=== PATIENT | female | born 1950 | race Caucasian/White ===

== ENCOUNTER 2024-11-17 12:51 | Emergency (ER) | payer OTHER, SELFPAY ==
--- NOTE | ~2024-11-17 | CT_ITS ---
CLINICAL HISTORY: fall, pain CT cervical spine without contrast Comparison: None Findings: Normal vertebral body alignment. There are mild degenerative changes. There is no significant central canal narrowing. 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 No acute fractures or dislocations. Visualized intracranial contents are unremarkable. Soft tissues of the neck are normal. No consolidation or effusion at the lung apices. IMPRESSION: No acute findings. This document has been electronically signed by: Katherine Cisneros MD on 11/17/2024 14:27:26
--- NOTE | ~2024-11-17 | CT_ITS ---
CLINICAL HISTORY: fall, pain CT maxillofacial without contrast Comparison: None Findings: Mildly displaced nasal bone fracture. Possible nondisplaced fracture of the nasal septum. Temporomandibular joints are intact. Paranasal sinuses and mastoid air cells clear. Orbits normal. Visualized intracranial contents are within normal limits. No foreign bodies. There is edema of the soft tissues of the right side of the forehead and the nose. There are tiny pockets of gas within the soft tissues of the base of the nose. IMPRESSION: Mildly displaced nasal bone fracture. Possible nondisplaced fracture of the nasal septum. This document has been electronically signed by: Katherine Cisneros MD on 11/17/2024 14:26:05
--- NOTE | ~2024-11-17 | CT_ITS ---
CLINICAL HISTORY: fall, pain CT head without contrast Comparison: None Findings: No intra-axial mass, midline shift, hydrocephalus, or acute hemorrhage. No significant atrophy-like change or white matter disease. The visualized paranasal sinuses and mastoid air cells are normal. The orbits are within normal limits. There is a fracture of the nasal bone. There are tiny pockets of gas within the soft tissues of the base of the nasal bone. There is a possible nondisplaced fracture of the nasal septum. There is a right frontal scalp contusion. IMPRESSION: 1. No intracranial hemorrhage. 2. There is a fracture of the nasal bone. There is a possible nondisplaced fracture of the nasal septum. This document has been electronically signed by: Katherine Cisneros MD on 11/17/2024 14:24:03
--- NOTE | 2024-11-17 12:57 | ED_ITS ---
HPI - Fall General Chief Complaint: Fall Stated Complaint: nose inj s/p fall Time Seen by Provider: 11/17/24 13:57 Source: patient Mode of arrival: ambulatory Limitations: no limitations History of Present Illness ED Provider: Dr. Shane Easton HPI Narrative: 74-year-old female with a history of hyperlipidemia, diabetes who presents emergency department for evaluation of injuries from a fall. The patient states that she tripped,fell forward landing on her face . She states she was able to get up immediately. She denied any loss of consciousness. The injury occurred approximately 1 hour prior to coming to the emergency department. She states that she sustained a cut to her nose and was bleeding . Related Data Previous Rx's ?Medication ?Instructions ?Recorded cephalexin 500 mg capsule 500 mg PO QID 7 days #28 caps 11/17/24 Allergies Allergy/AdvReac Type Severity Reaction Status Date / Time diphenhydramine Allergy Rash Verified 11/17/24 13:02 [From Nick] Review of Systems Review of Systems: Yes all other systems are reviewed and are negative [facility] Social History Social History Advance Directives: No Advance Directives Information Provided: No Physical Exam Vital Signs: Vital Signs: Last Vital Signs Temp 98.0 F 11/17/24 16:01 Pulse 77 11/17/24 16:01 Resp 16 11/17/24 16:01 BP 177/70 H 11/17/24 16:01 Pulse Ox 98 11/17/24 16:01 O2 Del Method Room Air 11/17/24 16:01 BMI result Body Mass Index 32.2 vital signs revealed an elevated blood pressure otherwise unremarkable Exam: General: Awake, alert in no distress Head: Normocephalic, 2 x 2 cm hematoma to the right forehead which is ecchymotic and tender, no other acute scalp abnormalities noted. Patient does have a 1 cm laceration you the bridge of the nose. There are several other superficial lacerations to the bridge of the nose as well. Patient does have tenderness palpation over in nasal bridge. There is dry blood in the right nares any nasal septum no hematoma noted on inspection EENT: PERRL, Lids normal, sclera normal, conjunctiva normal , ears normal, throat without erythema or exudates Neck: Supple, no adenopathy Lung: breath sounds symmetric, no wheezing, rales or rhonchi Chest: symmetric movement, nontender Heart: regular rate and rhythm, normal S1, S2 no murmurs or rubs Abdomen: soft, non-tender, nondistended, normal bowel sounds Back: no vertebral tenderness, no CVAT Extremities: no deformities, moves all extremities symmetrically Neuro: Awake, alert, oriented, normal speech, cranial nerves intact, moves all extremities symmetrically Psych: Pleasant, cooperative Course Course Course Narrative: 11/17 1258 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 No LOC. Will obtain CT head/facial bones/cervical spine. Will need lac repair. VSS Medications Administered Discontinued Medications Generic Name Dose Route Start Last Admin Trade Name Freq PRN Reason Stop Dose Admin Acetaminophen 975 mg 11/17/24 15:25 11/17/24 16:04 Acetaminophen 325 Mg Tablet PO 11/17/24 15:26 Not Given ONCE STA Bacitracin 1 appl 11/17/24 15:25 11/17/24 16:04 Bacitracin Oint 0.9 Gm Packet TOPICAL 11/17/24 15:26 Not Given ONCE ONE Protocol Cephalexin HCl 500 mg 11/17/24 15:25 11/17/24 16:04 Cephalexin 500 Mg Capsule PO 11/17/24 15:26 Not Given ONCE ONE Lidocaine HCl 5 ml 11/17/24 14:25 11/17/24 15:23 Lidocaine Hcl 1 % Mpf 5 Ml Vial INFILTRATI 11/17/24 14:26 5 ml ONCE STA Administration Procedures Laceration nasal bridge laceration: Site: face ( nasal bridge) Size (cm): 1.0 Description: linear Depth: [id number] Local Anesthetic: lidocaine 1% Amount of anesthesia used (mL): 5 Pre-repair: wound explored Skin layer closed with: vicryl Size (cm): 5-0 Number of sutures: 5 Technique: simple, interrupted Medical Decision Making Medical Decision Making MDM Narrative: 74-year-old female with a history of hyperlipidemia, diabetes who presents emergency department for evaluation of injuries from a fall. The patient states that she tripped,fell forward landing on her face . She states she was able to get up immediately. She denied any loss of consciousness. The injury occurred approximately 1 hour prior to coming to the emergency department. She states that she sustained a cut to her nose and was bleeding . physical examination did reveal an elevated blood pressure. Patient did have a suturable laceration to the bridge your nose with tenderness palpation of this area. She also has a right forehead hematoma. Exam is otherwise unremarkable. Differential diagnosis: Includes but is not limited to Skull fracture, in tracranial bleed, cervical fracture, nasal bone fractures, facial fractures, closed head injury, concussion Course: the patient had a CT scan of the head/cervical spine / facial bones. CT scan of the head and cervical spine were unremarkable. CT facial bones did reveal mildly displaced nasal bone fracture and possible nondisplaced fracture of the nasal septum. I did discuss these findings with the patient. given the fact that the patient has a laceration over the nasal bridge possible she may have an open fracture therefore she was treated prophylactically with Keflex 500 mg 4 times a day for 7 days. She was given her 1st dose here in the emergency department. The patient's nasal bridge laceration was repaired by me. The wound was closed in a single layer using 5.0 Vicryl dissolve will sutures. Total of 5 sutures were used. the wound was covered with bacitracin and a gauze dressing. Patient also received acetaminophen 975 mg orally for her pain. The patient was given printed and verbal instructions and discharged home. Admission/Observation Consideration of admission/observation: Escalation of care including admission/observation considered ( Yes) Radiology Impression Discussion of test interpretation with radiology: I have reviewed the radiologist's reading. Radiologist Impression: CT head without contrast Comparison: None Findings: No intra-axial mass, midline shift, hydrocephalus, or acute hemorrhage. No significant atrophy-like change or white matter disease. The visualized paranasal sinuses and mastoid air cells are normal. The orbits are within normal limits. There is a fracture of the nasal bone. There are tiny pockets of gas within the soft tissues of the base of the nasal bone. There is a possible nondisplaced fracture of the nasal septum. There is a right frontal scalp contusion. IMPRESSION: 1. No intracranial hemorrhage. 2. There is a fracture of the nasal bone. There is a possible nondisplaced fracture of the nasal septum. This document has been electronically signed by: Katherine Cisneros MD on 11/17/2024 14:24:03 CT cervical spine without contrast Comparison: None Findings: Normal vertebral body alignment. There are mild degenerative changes. There is no significant central canal narrowing. 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 No acute fractures or dislocations. Visualized intracranial contents are unremarkable. Soft tissues of the neck are normal. No consolidation or effusion at the lung apices. IMPRESSION: No acute findings. This document has been electronically signed by: Katherine Cisneros MD on 11/17/2024 14:27:26 CT maxillofacial without contrast Comparison: None Findings: Mildly displaced nasal bone fracture. Possible nondisplaced fracture of the nasal septum. Temporomandibular joints are intact. Paranasal sinuses and mastoid air cells clear. Orbits normal. Visualized intracranial contents are within normal limits. No foreign bodies. There is edema of the soft tissues of the right side of the forehead and the nose. There are tiny pockets of gas within the soft tissues of the base of the nose. IMPRESSION: Mildly displaced nasal bone fracture. Possible nondisplaced fracture of the nasal septum. This document has been electronically signed by: Katherine Cisneros MD on 11/17/2024 14:26:05 Independent Historian Clinical information obtained from an independent historian. History obtained from or confirmed by: Friend Prescription Management I considered prescription management with: Antibiotic ( Keflex) Chronic Conditions Patient?s care impacted by: Diabetes and Other ( hyperlipidemia ) Discharge Plan Discharge Clinical Impression: Fall, Laceration of nose, Closed fracture nasal bone, Closed fracture of nasal septum Patient Disposition: Home, Self-Care Instructions: Nasal Fracture (ED), Head Injury (DC) Additional Instructions: Your CT scan of your head and neck revealed no broken bones. The CT scan of the face revealed mildly displaced broken bone of your nose and nasal septum. These most likely will not need any intervention by an ENT physician but you can call our ENT physician at [facility] for follow-up if you have any concerns. You have 5 stitches in the laceration/cut over your nose. The stitches should dissolve in 5-14 days. Apply triple antibiotic ointment to the cut twice a day until the stitches dissolved. If the stitches do not dissolve after 2 weeks then your nurse practitioner, an urgent care clinic or the emergency department can remove the stitches. Since the cut on your nose was deep I do not want this to get infected especially since you have a broken bone of your nose therefore I am starting you on an antibiotic to prevent an infection. Take Keflex 500 mg pills, 1 pill 4 times a day for 5 days Take Tylenol (acetaminophen) 500 mg pills, 2 pills every 6 hours as needed for pain or fever. Follow-up with your doctor in 2 days. Please return to the emergency department if your symptoms get worse or if you develop any symptoms that are concerning to you. CT maxillofacial without contrast Comparison: None Findings: Mildly displaced nasal bone fracture. Possible nondisplaced fracture of the nasal septum. Temporomandibular joints are intact. Paranasal sinuses and mastoid air cells clear. Orbits normal. Visualized intracranial contents are within normal limits. No foreign bodies. There is edema of the soft tissues of the right side of the forehead and the nose. There are tiny pockets of gas within the soft tissues of the base of the nose. IMPRESSION: Mildly displaced nasal bone fracture. Possible nondisplaced fracture of the nasal septum. This document has been electronically signed by: Katherine Cisneros MD on 11/17/2024 14:26:05 Prescriptions: New cephalexin 500 mg capsule 500 mg PO QID 7 Days Qty: 28 0RF Referrals: Griffin Lira [Physician] - 2 weeks (Nondisplaced nasal bone fracture and possible nasal septum fracture) Interventions: ED Discharge Assessment Last Done: 11/17/24 16:01 Discharge Date/Time: 11/17/24 16:02 Print Language: Portuguese
[2024-11-17 12:59] VITALS: BP 165/70; PULSE 80; RESP 18; TEMP 37.1; O2SAT 98; BMI 32.2
--- OUTSIDE RECORDS SUMMARY | 2024-11-17 14:08 | XMS_ITS | Clinical Summary ---
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 Name Role Phone Unavailable Primary Care Provider Unavailabl e Social History Tobacco Use Types Packs/Day Years Used Date Smoking Tobacco: Never Assessed Comments Unknown Sex and Gender Information Value Date Recorded Sex Assigned at Not on file Legal Sex Female 8:14 AM EST Gender Identity Not on file Sexual Orientation Not on file Plan of Treatment Upcoming Encounters Date Type Department Care Team (Late st Contact Info) Description 12/20/2024 7:15 AM EDT [facility]ointment [facility] [address] [address] Health Maintenance Due Date Last Done Comments Diabetes: Annual Foot Exam 1962 Diabetes: Annual Retina Eye Exam 1962 DTaP,Tdap,and Td Vaccines (1 - Tdap) 1971 Zoster Vaccines (1 of 2) 2002 Pneumococcal Vaccine: 50+ Years (2 of 2 - PPSV23) 05/28/2020 04/02/2020 Colorectal Cancer Screening: Colonoscopy 06/06/2022 Depression Screening 06/06/2022 Falls Risk Assessment 06/06/2022 Hepatitis C Screening 06/06/2022 Medicare Annual Wellness Visit 06/06/2022 Osteoporosis Screening (Bone Density Screening) 06/06/2022 Social Influencers of Health Screening 06/06/2022 COVID-19 Vaccine ( season) 2024 Influenza Vaccine (Season Ended) 2025 Diabetes: Blood Sugar Control Test (HGBA1C) 04/12/2025 10/11/2024 Diabetes: Annual Urine Albumin-Creatinine Ratio (uACR) 10/11/2025 10/11/2024 Diabetes: Annual GFR (Glomerular Filtration Rate) 10/11/2025 10/11/2024 Breast Cancer Screening 10/12/2025 10/13/19 24, 09/03/2022, 08/13/2021, Additional history exists RSV Immunization Adult Patients (1 - 1-dose 75+ series) 2027 Cholesterol Screening (Lipid Panel) 10/11/2029 10/11/2024 HIB Vaccines Aged Out No longer eligi ble based on patient's age to complete this topic HPV Vaccines Aged Out No longer eligi ble based on patient's age to complete this topic Hepatitis A Vaccines Aged Out No long er eligible based on patient's age to complete this topic Hepatitis B Vaccines Aged Out No long er eligible based on patient's age to complete this topic IPV Vaccines Aged Out No longer eligi ble based on patient's age to complete this topic MMR Vaccines Aged Out No longer eligi ble based on patient's age to complete this topic Meningococcal ACWY Vaccine Aged Out N o longer eligible based on patient's age to complete this topic Meningococcal B Vaccine Aged Out No l onger eligible based on patient's age to complete this topic RSV Immunization Patients Under 20 months Aged Out No longer eligible based on patient's age to complete this topic Varicella Vaccines Aged Out No longer eligible based on patient's age to complete this topic Procedures Procedure Name Priority Date/Time Associated Diagnosis Comments MICROALBUMIN CREATININE URINE RATIO Routine 10/11/2024 3:15 PM EDT Diabetes mellitus ([facility] V24, [facility] V28) Vitamin D deficiency disease Obesity, unspecified Hyperlipemia Major depressive disorder, single episode, unspecified ALANINE AMINOTRANSFERASE Routine 025 8:29 AM EDT Diabetes mellitus ([facility] V24, [facility] V28) Vitamin D deficiency disease Obesity, unspecified Hyperlipemia Major depressive disorder, single episode, unspecified VITAMIN D 25 HYDROXY Routine 10/11/2024 8:29 AM EDT Diabetes mellitus ([facility] V24, [facility] V28) Vitamin D deficiency disease Obesity, unspecified Hyperlipemia Major depressive disorder, single episode, unspecified THYROID STIMULATING HORMONE WITH REFLEX TO FREE T4 AND FREE T3 Routine 10/11/2024 8:29 AM EDT Diabetes mellitus ([facility] V24, [facility] V28) Vitamin D deficiency disease Obesity, unspecified Hyperlipemia Major depressive disorder, single episode, unspecified COMPLETE BLOOD COUNT Routine 10/11/2024 8:29 AM EDT Diabetes mellitus ([facility] V24, [facility] V28) Vitamin D deficiency disease Obesity, unspecified Hyperlipemia Major depressive disorder, single episode, unspecified HEMOGLOBIN A1C Routine 10/11/2024 8:29 AM EDT Diabetes mellitus ([facility] V24, [facility] V28) Vitamin D deficiency disease Obesity, unspecified Hyperlipemia Major depressive disorder, single episode, unspecified BASIC METABOLIC PANEL Routine 10/11/2024 8:29 AM EDT Diabetes mellitus ([facility] V24, [facility] V28) Vitamin D deficiency disease Obesity, unspecified Hyperlipemia Major depressive disorder, single episode, unspecified ASPARTATE AMINOTRANSFERASE Routine 10/11/2024 8:29 AM EDT Diabetes mellitus ([facility] V24, [facility] V28) Vitamin D deficiency disease Obesity, unspecified Hyperlipemia Major depressive disorder, single episode, unspecified LIPID PANEL WITH REFLEX TO DIRECT LDL Routine 10/11/2024 8:29 AM EDT Diabetes mellitus ([facility] V24, [facility] V28) Vitamin D deficiency disease Obesity, unspecified Hyperlipemia Major depressive disorder, single episode, unspecified ALISSA SCREENING DIGITAL Routine 10/13/2023 10:04 AM EDT Encounter for screening mammogram for malignant neoplasm of breast from Last 3 Months or Most Recently Relevant to Health Maintenance Results * Microalbumin creatinine urine ratio (10/11/2024 3:15 PM EDT) [facility] Creatinine, Urine 141.0 mg/dL LAB CHEMISTRY METHOD 10/11/2024 4:37 PM EDT [facility] Microalb, Ur 11.5 0.0 - 29.0 mg/L LAB CHEMISTRY METHOD 10/11/2024 4:37 PM EDT [facility] Microalb/Creat Ratio 8 <30 mg/g creat LAB CHEMISTRY METHOD 10/11/2024 4:37 PM EDT [facility] Urine Urine specimen obtained by clean catch procedure / Unknown Non-blood Collection / Unknown 10/11/2024 3:15 PM EDT 10/11/2024 3:39 PM EDT My Mendez LAB URINE ORDERABLES Final Re sult Performing Organization Address [facility]/ZIP Co de Phone Number [facility] [address] [place] [address], [place] [phone] * Thyroid stimulating hormone with reflex to free t4 and free t3 (10/11/2024 8:29 AM EDT) TSH 3.26 0.40 - 4.00 mcIU/mL LAB CHEMISTRY METHOD 10/11/2024 4:03 PM EDT [facility] Blood Venous blood specimen / Unknown Venipuncture / Unknown 10/11/2024 8:29 AM EDT 10/11/2024 8:58 AM EDT My M[facility] LAB BLOOD ORDERABLES Final Re sult Performing Organization Address City/[facility]/ZIP Co de Phone Number [facility] [address] [place] [address], [place] [phone] * (ABNORMAL) Lipid panel with reflex to direct LDL (10/11/2024 8:29 AM EDT) Cholesterol 231(H) 0 - 200 mg/dL LAB CHEMISTRY METHOD 10/11/2024 9:56 AM EDT [facility] Triglycerides 166(H) 0 - 150 mg/dL LAB CHEMISTRY METHOD 10/11/2024 9:56 AM EDT [facility] HDL 50 >=40 mg/dL LAB CHEMISTRY METHOD 10/11/2024 9:56 AM EDT [facility] LDL Calculated 148(H) 0 - 100 mg/dL LAB CHEMISTRY METHOD 10/11/2024 9:56 AM EDT [facility] VLDL Cholesterol Tristen 33.2 mg/dL LAB CHEMISTRY METHOD 10/11/2024 9:56 AM EDT [facility] Non HDL Chol. (LDL+VLDL) 181(H) <145 mg/dL LAB CHEMISTRY METHOD 10/11/2024 9:56 AM EDT [facility] Chol/HDL Ratio 4.6(H) 0.0 - 4.4 LAB CHEMISTRY METHOD 10/11/2024 9:56 AM EDT [facility] Blood Venous blood specimen / Unknown Venipuncture / Unknown 10/11/2024 8:29 AM EDT 10/11/2024 8:58 AM EDT us My Mendez NP LAB BLOOD ORDERABLES Final Re sult Performing Organization Address [facility]/ZIP Co de Phone Number [facility] [address] [place] [address], [place] [phone] * Vitamin D 25 hydroxy (10/11/2024 8:29 AM EDT) Vit D, 25-Hydroxy 46.9 30.0 - 80.0 ng/mL LAB CHEMISTRY METHOD 10/11/2024 10:53 AM EDT [facility] Blood Venous blood specimen / Unknown Venipuncture / Unknown 10/11/2024 8:29 AM EDT 10/11/2024 8:58 AM EDT us My Mendez NP LAB BLOOD ORDERABLES Final Re sult Performing Organization Address City/[facility]/ZIP Co de Phone Number [facility] [address] [place] [address], [place] [phone] * Complete blood count (10/11/2024 8:29 AM EDT) [facility] Signature WBC 8.4 4.8 - 10.8 K/mcL LAB HEMETOLOGY METHOD 10/11/2024 9:19 AM [facility] RBC 4.60 3.80 - 4.80 M/mcL LAB HEMETOLOGY METHOD 10/11/2024 9:19 AM [facility] Hemoglobin 13.4 11.5 - 16.0 g/dL LAB HEMETOLOGY METHOD 10/11/2024 9:19 AM [facility] Hematocrit 39.5 35.0 - 47.0 % LAB HEMETOLOGY METHOD 10/11/2024 9:19 AM [facility] MCV 86.6 79.0 - 98.0 FL LAB HEMETOLOGY METHOD 10/11/2024 9:19 AM [facility] MCH 29.4 27.0 - 32.0 pcg LAB HEMETOLOGY METHOD 10/11/2024 9:19 AM [facility] MCHC 33.9 32.0 - 37.0 g/dL LAB HEMETOLOGY METHOD 10/11/2024 9:19 AM [facility] RDW 14.1 11.0 - 15.0 % LAB HEMETOLOGY METHOD 10/11/2024 9:19 AM [facility] Platelets 283 130 - 400 K/mcL LAB HEMETOLOGY METHOD 10/11/2024 9:19 AM [facility] MPV 10.1 7.0 - 11.0 FL LAB HEMETOLOGY METHOD 10/11/2024 9:19 AM [facility] NRBC 0.0 <1.0 % LAB HEMETOLOGY METHOD 10/11/2024 9:19 AM [facility] NRBC Absolute 0.00 <0.10 K/mcL LAB HEMETOLOGY METHOD 10/11/2024 9:19 AM EDT [facility] Blood Venous blood specimen / Unknown Venipuncture / Unknown 10/11/2024 8:29 AM EDT 10/11/2024 9:00 AM EDT us My Mendez ESCROW MANAGER LAB BLOOD ORDERABLES Final Re sult Performing Organization Address [facility]/ZIP Co de Phone Number [facility] [address] [place] [address], [place] [phone] * Alanine aminotransferase (10/11/2024 8:29 AM EDT) ALT (SGPT) 20 10 - 60 unit/L LAB CHEMISTRY METHOD 10/11/2024 9:52 AM EDT [facility] Blood Venous blood specimen / Unknown Venipuncture / Unknown 10/11/2024 8:29 AM EDT 10/11/2024 8:58 AM EDT us PetersonMygm Mendez LAB BLOOD ORDERABLES Final Re sult Performing Organization Address [facility]/ZIP Co de Phone Number [facility] [address] [place] [address], [place] [phone] * Aspartate aminotransferase (10/11/2024 8:29 AM EDT) AST (SGOT) 14 10 - 42 unit/L LAB CHEMISTRY METHOD 10/11/2024 9:56 AM EDT [facility] Blood Venous blood specimen / Unknown Venipuncture / Unknown 10/11/2024 8:29 AM EDT 10/11/2024 8:58 AM EDT us My Avalosten ESCROW MANAGER LAB BLOOD ORDERABLES Final Re sult Performing Organization Address City/[facility]/ZIP Co de Phone Number [facility] [address] [place] [address], [place] [phone] * (ABNORMAL) Hemoglobin A1c (10/11/2024 8:29 AM EDT) Pathologist [facility] Hemoglobin A1C 8.0(H) <6.5 % LAB CHEMISTRY METHOD 10/11/2024 11:11 AM [facility] Mean Bld Glu Estim. 183 mg/dL LAB CHEMISTRY METHOD 10/11/2024 11:11 AM [facility] Blood Venous blood specimen / Unknown Venipuncture / Unknown 10/11/2024 8:29 AM EDT 10/11/2024 9:00 AM EDT My Mendez NP LAB BLOOD ORDERABLES Final Re sult [facility] [address] [place] [address], * (ABNORMAL) Basic metabolic panel (10/11/2024 8:29 AM EDT) [facility] Sodium 139 133 - 145 mmol/L LAB CHEMISTRY METHOD 10/11/2024 9:52 AM [facility] Potassium 4.4 3.5 - 5.5 mmol/L LAB CHEMISTRY METHOD 10/11/2024 9:52 AM [facility] Chloride 106 96 - 110 mmol/L LAB CHEMISTRY METHOD 10/11/2024 9:52 AM [facility] CO2 29 21 - 32 mmol/L LAB CHEMISTRY METHOD 10/11/2024 9:52 AM [facility] Anion Gap 4 3 - 11 LAB CHEMISTRY METHOD 10/11/2024 9:52 AM [facility] Glucose 146(H) 70 - 100 mg/dL LAB CHEMISTRY METHOD 10/11/2024 9:52 AM [facility] BUN 16 5 - 25 mg/dL LAB CHEMISTRY METHOD 10/11/2024 9:52 AM [facility] Creatinine 0.92 0.50 - 1.10 mg/dL LAB CHEMISTRY METHOD 10/11/2024 9:52 AM EDT [facility] eGFR 66 >=60 mL/min/1. 73m2 LAB CHEMISTRY METHOD 10/11/2024 9:52 AM EDT [facility] Comment:Calculation based on the??Chronic Kidney Disease Epidemiology Collaboration (CKD-EPI) equation refit??without adjustment for race. BUN/Creatinine Ratio 17.4 LAB CHEMISTRY METHOD 10/11/2024 9:52 AM EDT [facility] Calcium 9.7 8.5 - 10.5 mg/dL LAB CHEMISTRY METHOD 10/11/2024 9:52 AM EDT [facility] Blood Venous blood specimen / Unknown Venipuncture / Unknown 10/11/2024 8:29 AM EDT 10/11/2024 8:58 AM EDT My Mendez ESCROW MANAGER LAB BLOOD ORDERABLES Final Re sult [facility] [address] [place] [address], * ALISSA SCREENING DIGITAL (10/13/2023 10:04 AM EDT) Anatomical Region Laterality Modality Mammography 10/13/2023 7:45 AM EDT Narrative 10/13/2023 10:04 AM EDT [facility] Diagnostic Imaging Department [address] [place] [address] Patient: ??KAYLIN AYALA ?/Age/Sex: 1950 - Unit#: ??[id number] ? Location/Status: ??SPDIMAM/REG CLI ? Mnemonic/Ordering Site: ??DIGSC/SPMAM Ordering Physician: ??MY MENDEZ ESCROW MANAGER [facility] Screening Digital - 10/13/23 - 811 Report Status:Signed EXAM: [facility] Screening Digital EXAM DATE AND TIME: 10/13/2023 8:12 AM HISTORY: ??Annual screening COMPARISON: ??Multiple exams dating back to 2003 TECHNIQUE: Bilateral digital breast tomosynthesis was performed in the CC and MLO projections. Computer aided detection with Contapps 3D 3.1 was employed. TISSUE DENSITY: b. There are scattered areas of fibroglandular density. FINDINGS: No suspicious masses, grouped microcalcifications, or areas of architectural distortion are seen. The skin and vascularity are unremarkable. IMPRESSION: Stable mammographic appearance of the breasts. ??No evidence of malignancy is seen. A negative mammogram in the presence of a clinically suspicious palpable abnormality does not preclude the possibility of malignancy or alter the indications for biopsy. BI-RADS: ??Category 1: Negative RECOMMENDATION(S): 1: Routine screening mammogram BILATERAL in 1 year. 3341F, 7025F Dictating Physician: ??JOY GRANT MD Electronically Signed by: ??JOY GRANT MD Dic Date/Time: ??10/13/23 1004 Sign date/Time: ??10/13/23 1004 Procedure Note Joy Grant MD - 02/20/2024 [facility] Diagnostic Imaging Department [address] [place] [id number] Patient: KAYLIN AYALA /Age/Sex: 1950 - 73 - F Unit#: [id number] Location/Status: SPDIMAM/REG CLI Mnemonic/Ordering Site: [facility] Ordering Physician: MY MENDEZ NP [facility] Screening Digital - 10/13/23 - 811 Report Status:Signed EXAM: [facility] Screening Digital EXAM DATE AND TIME: 10/13/2023 8:12 AM HISTORY: Annual screening COMPARISON: Multiple exams dating back to 2003 TECHNIQUE: Bilateral digital breast tomosynthesis was performed in the CCand MLO projections. Computer aided detection with Contapps 3D 3.1was employed. TISSUE DENSITY: b. There are scattered areas of fibroglandular density. FINDINGS: No suspicious masses, grouped microcalcifications, or areas ofarchitectural distortion are seen. The skin and vascularity are unremarkable. IMPRESSION: Stable mammographic appearance of the breasts. No evidence of malignancyis seen. A negative mammogram in the presence of a clinically suspicious palpable abnormality does not preclude the possibility of malignancy or alter the indications for biopsy. BI-RADS: Category 1: Negative RECOMMENDATION(S): 1: Routine screening mammogram BILATERAL in 1 year. 3341F, 7025F Dictating Physician: JOY GRANT MD Electronically Signed by: JYO GRANT MD Dic Date/Time: 10/13/23 1004 Sign date/Time: 10/13/23 100 My Mendez NP IMG BI PROCEDURES Final Resul t from Last 3 Months or Most Recently Relevant to Health Maintenance Insurance MEDICARE [facility]
[2024-11-17 14:29] VITALS: BP 177/70; PULSE 77; RESP 16; O2SAT 98
[2024-11-17] MEDS: Lidocaine HCl 1 % MPF 5 ML VIAL INFILTRATI (15:23)
[2024-11-17 16:01] VITALS: BP 177/70; PULSE 77; RESP 16; TEMP 36.7; O2SAT 98
== END 2024-11-17 16:02 | disposition home or self-care (01) ==
PROVIDERS: Emergency Provider Emergency Medicine Emergency Medical Services; PCP Nurse Practitioner Family
DX: S01.21XA Laceration without foreign body of nose, initial encounter (principal); S02.2XXA Fracture of nasal bones, initial encounter for closed fracture; W18.30XA Fall on same level, unspecified, initial encounter; Y93.9 Activity, unspecified; Y92.9 Unspecified place or not applicable; Y99.9 Unspecified external cause status
CPT/HCPCS: 12011; 70450; 70486; 72125; 99283; 99284; J2003

== ENCOUNTER → 2024-11-17 13:03 | Outpatient (BNV) | payer OTHER, SELFPAY | PROVIDERS: Emergency Provider Emergency Medicine Emergency Medical Services; PCP Nurse Practitioner Family; Visit Provider Radiology Diagnostic Radiology | DX: M54.2 Cervicalgia (principal); W19.XXXA Unspecified fall, initial encounter; S02.2XXA Fracture of nasal bones, initial encounter for closed fracture | CPT/HCPCS: 70450; 70486; 72125 ==